=== PATIENT | female | born 1985 | race American Indian/Alaskan Native ===

== ENCOUNTER 2022-11-23 22:03 | Emergency (ER) | payer MEDICAID ==
[2022-11-23 22:25] VITALS: BP 137/93; PULSE 105
== END 2022-11-23 22:45 | disposition home or self-care (01) ==
LOC: DL.ED 22:03
DX: F28 Other psychotic disorder not due to a substance or known physiological condition (principal); Z87.891 Personal history of nicotine dependence
CPT/HCPCS: 99282; 99284

== ENCOUNTER 2024-12-05 10:34 | Emergency (ER) | payer MEDICAID ==
[2024-12-05 10:46] VITALS: BP 125/85; PULSE 98
[2024-12-05] MEDS: Lidocaine 2% 20 ML MDV ONE (11:00)
== END 2024-12-05 11:15 | disposition home or self-care (01) ==
LOC: DL.ED 10:34
DX: G43.909 Migraine, unspecified, not intractable, without status migrainosus (principal); F17.210 Nicotine dependence, cigarettes, uncomplicated; Z90.49 Acquired absence of other specified parts of digestive tract
CPT/HCPCS: 99283; 99284; J2003